=== PATIENT | female | born 1985 | race Caucasian/White ===

== ENCOUNTER → 2019-09-08 | Outpatient (CLI) | payer OTHER, SELFPAY ==
[2019-09-09 15:58] LABS: Chlamydia Trachomatis by PCR Negative (Negative); Neisserai gonorrhoeae by PCR Negative (Negative); Probe Check PASS; Sample Adequacy Control PASS; Specimen Processing Control PASS
[2019-09-12 10:47] LABS: HPV Reflexed? NOT INDICATED
== END | disposition home or self-care (01) ==
LOC: LABSPEC 09-09 08:59
PROVIDERS: Visit Provider Obstetrics & Gynecology
DX: Z12.4 Encounter for screening for malignant neoplasm of cervix (principal); Z11.3 Encounter for screening for infections with a predominantly sexual mode of transmission
CPT/HCPCS: 87491; 87591; 88175; G0145

== ENCOUNTER → 2020-02-22 | Outpatient (CLI) | payer OTHER, SELFPAY ==
[2014-02-05 11:40] VITALS: BMI 29.7
== END | disposition home or self-care (01) ==
LOC: LABSPEC 16:47
PROVIDERS: Visit Provider Obstetrics & Gynecology
DX: Z36.85 Encounter for antenatal screening for Streptococcus B (principal)
CPT/HCPCS: 87081

== ENCOUNTER → 2020-02-24 17:22 | Outpatient (CLI) | payer OTHER, SELFPAY ==
[2020-02-24 16:58] VITALS: BMI 31.3
== END ==
PROVIDERS: PCP Family Medicine; Referring Provider Obstetrics & Gynecology; Visit Provider Obstetrics & Gynecology
DX: U07.1 COVID-19 (principal)
CPT/HCPCS: 87635; C9803; U0003

== ENCOUNTER 2020-02-24 19:15 | Inpatient (IN) | payer OTHER, SELFPAY ==
[2014-02-05 11:40] VITALS: BMI 29.7
[2020-02-24] VITALS (11 sets, daily range): BP systolic 107–129; BP diastolic 57–75; PULSE 65–92; RESP 12–20; TEMP 36.1–37.1; O2SAT 95–97; BMI 31.3
[2020-02-24] MEDS: Lactated Ringers 1,000 ML 999 ML IV (19:10)
[2020-02-24 19:28] LABS: Absolute Lymphocyte Count 1.89 X10^3/uL (0.83-4.51); Absolute Neutrophil Count 11.9 X10^3/uL (2.0-7.7); Basophil# 0.06 X10^3/uL; Basophil% 0.4 % (0-1); Hemoglobin 12.5 g/dL (12.0-15.0); Lymphocyte # 1.89 X10^3/ul (4.0); Lymphocyte % 12.6 % (19-41); Mean Corp Hgb Conc 32.9 g/dL (32-36); Mean Corpuscular Hgb 29.1 pg (27.0-32.0); Mean Corpuscular Volume 88.4 fL (81-99); Mean Platelet Vol. 9.6 fl (6.2-12.0); Monocyte# 0.74 X10^3/uL; Monocyte% 4.9 % (0-10); NRBC Flagged by Analyzer 0 % (0-5); Neutrophil # 11.88 X10^3/uL (2.7-7.7); Neutrophil % 79.3 % (47-70); Platelet Count 272 K/mm3 (150-450); RBC Distribution Width CV 13.9 % (11.6-14.6); RBC Distribution Width SD 44.3 fl (35.1-43.9)
--- NOTE | 2020-02-24 19:49 | PCM.HP.BLA ---
History and Physical Date of Admission: 02/24/20 ACOG ANTEPARTUM RECORD - HISTORY AND PHYSICAL (02/24/2020) Name: CHELY NORMAN History of This : This is a 34-year-old who presented to labor and delivery this evening with decreased movement. care has been remarkable for a history of x2 with one of them being a classical . was planned for next week and steroids have been given the last 2 days in preparation for the surgery. Upon presentation to labor and delivery she was noted to be having some irregular contractions but heart tones are nonreassuring. The patient is not having any bleeding or pain although she is having some uncomfortable contractions. Patient also desires permanent sterilization at the time of her section. OB Physician: DARRIAN [place]'s Physician: Sha Ramesh [facility] ...................................................................... : 1985 Age: 34 Address: [address] [place] [address] Phone: H) [phone] Insurance Carrier: [facility] [id number] Emergency Contact: DEBBIE NORMAN/SPOUSE [phone] ...................................................................... Final BUSHRA: 03/20/20 By Ultrasound: 12 weeks 2 days PARITY: (G-Total Pregnancies P-Fullterm,Premature,Induced AB,Spont AB, Ectopics, Multiple,Living) BUSHRA CONFIRMATION: By LMP: 06/14/19 Final BUSHRA: 03/20/20 OB PROBLEM LIST: ALLERGIES SULFA AND ROBITUSSIN Probable [facility] del re to 37 w RCS in case NICU care needed. History PPD. May want fluoxetine PP. Prior x 2; Plan repeat at 37 weeks gestation -- wants tubal--prior classical tear with prior delivery ALLERGIES: NKDA Robitussin Hives Robitussin Hives and/or rash Sulfa Hives/throat swelling Sulfa (Sulfonamide Antibiotics) Hives and/or rash MEDICATIONS: [place] Rive Gummies 1 PO BID fluoxetine 20 mg capsule One pill by mouth once a day Supplement (s) [No Strength] Varigone Unisom (doxylamine) 25 mg tablet at hs Vitamin B-6 50 mg capsule daily SOCIAL HISTORY: Smoking - Never Alcohol Use - not while pg, occ sips wine. Diet - balanced Diet, caffeine < 2 drinks per day and water- less with NVP. Usually 2 liters q day Lifestyle - Exercise - Less w NVP. Active w home, garden. Some mowing. Likes to walk. Employer - homemaker Job Description - Illicit Drug Use - denies use of street drugs Sexual Activity - Place of - [place] Spouse-Sig Other Name - Debbie Norman Spouse-Sig Other Occupation - [employer] Spouse-Sig Other Phone No - [phone] Children Name(s) - Navneet Stephenson Joel and Jaun(14) PRIOR DELIVERY HISTORY DEL DATE GEST LAB WT LB WT OZ TYPE ANES LABOR TX 05 Oct 18 40 15 5 14 Vag None No Dec 20 32 12 3 11 C-Sec Epidural No Dec 20 32 12 3 7 C-Sec Epidural No Jan 24 37 0 6 4 C-Sec Spinal No ANTEPARTUM FLOW CHART VISIT GE RTC FU F F IL U U DATE WK MD WKS HT PN HR M SS BP ED WT IL GL D EF ST __ ____ ___ __ __ ___ __ __ __ ___ __ __ __ ___ __ 12 Feb JMW + 112/72 sl 186 tr - Feb JMW 3 36 V + + 98/82 sl 185 - - cl 50 hi Jan JMW 2 34 + + 116/70 sl 186 - - Jan JM 2 32 V + + 125/81 sl 186 tr - Feb 09 JMW 2 31 + + 123/72 sl 186 - - Dec 05 JMW 3 25 + + 124/70 sl 182 - - 30 Nov 01 JMW 4 24 + US 130/79 tr 179 tr - Sep 26 JMW 4 16 + ? 124/78 sl 173 tr - ANTEPARTUM NOTE(S): Feb 23 2020: Second dose Celestone Given, Reviewed Covid Screening Form Feb 22 2020: Celestone today/tomorrow; GBS done Feb 09 2020: Ctxs-mild, Good FM Jan 26 2020: doing well, scheduled 03/02/2020 Jan 12 2020: Doing well, 1hrGTT/CBC today Dec 08 2019: questions about COVID, Glucola inst provided and reviewed Nov 11 2019: U/S OK Oct 06 2019: Needs Panel drawn today,Feeling Well COMPREHENSIVE ANTEPARTUM NOTE(S): Feb 23 2020: Presents here today for second dose of Celestone 15 mg as previous dose was given yesterday 02/22/20 via undersigned in RUOQ IM without problems. Reports noting alittle insomnia last night, but otherwise denies problems or concerns. Already scheduled for next week and reviewed covid screening order with her and copy given for her to call and schedule. Celestone 15 mg injection given today in LUOQ IM via undersigned without problem. No side effects noted after her 15 minute wait post-injection. ERNIE RN Feb 22 2020: Chely is here for a PNV/ Pre op appt. Good FM. Sl edema in feet and fingers. Reports ctx's over New Years and ctx's last , would like a cervix check today. Consent signed and reviewed for / tubal. Ensure sent with pt. GBS today, consent signed. MK Jan 26 2020: 32wk, hx of classical c/s for R C/S BTL. Scheduled at 37wk in [facility] 03/02/20. JM Jan 12 2020: Labs drawn from left ac x 1 attempt with 23g butterfly patient tolerated well, site without compromise. jlb Nov 11 2019: Chely is here today with spouse for her PNV. She is doing good. Good FM. She has a trace of edema in her ankles. States that the nausea and vomiting has subsided since she is on Unisom and Vit B-6. She wants to know how long she should stay on Unisom and Vit B-6. Medications and allergies up to date. No other questions or concerns expressed today. LJW Oct 06 2019: AFP form and EPDS form filled out today. 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 Her , Debbie works at [employer]. They are pleased about the . Chely's first son, 13 y, was an uncomplicated vag del at [facility]. . Her second , twin boys, now 11 y born by PCS at [facility] uterine tearing and blood transfusions. Babies had 2 1/2 and 3 weeks NICU time. Chely pumped for them. She had PPD and was on fluoxetine. Her 5 yo son, RCS at 37 w at [facility] did well and nursed x 1 year. She was on fluoxetine for a few months and really enjoyed him. Cheyl is interested in starting the antidepressant early on with this baby. She has allergies to Sulfa and Robitussin. Her diet is balanced with occ iced tea and at least 2 liters of water daily. She is very active with her home, family and garden. She'll start mowing when her boys return to school. Walking for exercise enc 20 min + day as she can. Chely is a lifetime non smoker, drinks wine occ but not in pg and denies street drug use. 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 She is taking an Pentecostalism supplement to help with varicose veins. Warning signs in preg reviewed as well as wearing seatbelt low and ALWAYS despite position in the vehicle, OTC meds ok to take when pg, lifting restriction of 20-25# , the importance of protein in her diet and reaching the office with any concerns with understanding voiced. They have only an outside cat but she is aware of litter box issues. US done at prev visit. Labs unable to be drawn at last visit due to dehydration and will have a next visit. She has a copy of What to Expect and other office informational papers. Enc to call if any questions. Visit took 40 minutes. Rogerio GARRIDO. NEW Sep 08 2019: ok Sep 07 2020: Chely presents here today for Missed Menses appointment. 34 y.o. G 4 P 4 (set of twins) non-smoker with regular menses and LMP of 06-14-19 lasting her average of 5-6 days. UPT is positive today in our Office. Presents at 12 weeks 2 days with an approximate BUSHRA of 03-20-20. Currently taking Belle Rive Gummie Vitamins as she continues with daily nausea, declines offer for an Rx for nausea at this time. History of normal pap screening in 2013. Medication and Allergy lists up-dated. Educational Materials given. Plans repeat at [facility] and mentions that she would also like to have a Tubal at same time. ERNIE REVIEW OF SYSTEMS: GENERAL - Denies fever, or chills SKIN - Denies rash, new skin lesions, or change in moles EYES - Denies blurred vision, or change in visual acuity EARS - Denies ear pain, or difficulty hearing NOSE - Denies nasal congestion, discharge, or bleeding MOUTH - Denies sore throat, or difficulty swallowing NECK - Denies pain or swelling RESPIRATORY - Denies shortness of breath, cough, wheezing CARDIOVASCULAR - Denies palpitations, chest pain, orthopnea, PND, peripheral edema, syncope or claudication GASTROINTESTINAL - Denies nausea, vomiting, diarrhea, constipation, Denies abdominal pain, melena and or bright red blood GENITOURINARY - Denies dysuria, frequency of urination, urgency, or hesitancy MUSCULOSKELETAL - Denies joint or muscle pain, or back pain NEUROLOGICAL - Denies localized numbness, weakness, or tingling PSYCHIATRIC - Denies depression, anxiety, substance abuse or suicide attempts ENDOCRINE - Denies heat or cold intolerance, weight loss or gain, increasing thirst HEMATO-IMMUNOLOGIC - Denies easy bruising, bleeding, oral ulcerations or recurrent infections GENETICS SCREENING: Age 35+ years: Yes Thalassemia: No Neural Tube Defect: No Down Syndrome: No RHODA-SACHS: No Sickle Cell Disease: No Hemophilia: No Musc. Dystrophy: No Cystic Fibrosis: No-declines screening Van Chorea: No Mental Retardation: No Fragile X: No Other genetic: No Other defects: No SABs/still births: No Drugs since LMP: No INFECTION HISTORY: High risk AIDS: No High risk Hepatitis: No Exposed to TB: No Exposed to Herpes: No Rash/viral illness since LMP: No History of STD: No MENSTRUAL HISTORY: *Menses Amount/Duration: 5 daysMenses Regularity: Regular* PAST SUMMARY: PARITY: 1. Total Pregnancies............ 4 2. Full Term Pregnancies........ 2 3. Premature.................... 2 4. Abortions - Induced.......... 0 5. Abortions - Spontaneous...... 0 6. Ectopics..................... 0 7. Multiple Births.............. 1 8. Living Children.............. 4 PAST #1: Date of :.................. 10/16/[birth year] Gestation Weeks:................ 40 Length of labor(hours):......... 15 Sex:............................ M Weight-lbs:............... 5 Weight-oz:................ 14 Type of Delivery:............... Vag Type of Anesthesia:............. None Place of Delivery:.............. [facility] Treatment of Labor?:.... No Comment: PAST #2: Date of :.................. 12/22/08 Gestation Weeks:................ 32 Length of labor(hours):......... 12 Sex:............................ M Weight-lbs:............... 3 Weight-oz:................ 7 Type of Delivery:............... C-Sect Type of Anesthesia:............. Epidural Place of Delivery:.............. [facility] Treatment of Labor?:.... No Comment: BABY A PAST #3: Date of :.................. 12/22/08 Gestation Weeks:................ 32 Length of labor(hours):......... 12 Sex:............................ M Weight-lbs:............... 3 Weight-oz:................ 11 Type of Delivery:............... C-Sect Type of Anesthesia:............. Epidural Place of Delivery:.............. [facility] Treatment of Labor?:.... No Comment: BABY B PAST #4: Date of :.................. 02/05/14 Gestation Weeks:................ 37 Length of labor(hours):......... 0 Sex:............................ M Weight-lbs:............... 6 Weight-oz:................ 4 Type of Delivery:............... C-Sect Type of Anesthesia:............. Spinal Place of Delivery:.............. [facility] Treatment of Labor?:.... No Comment: NO PHYSICAL EXAMINATION General Appearence: 34 yo female in no acute distress Vital Signs: AF, VSS Heart: RRR without rubs or gallops Lungs: CTA x 2 Breasts: deferred Abdomen: gravid Pelvis: Cervix: Not examined Presentation: cephalic Station: Not examined Fetus: Size: AGA Movement: present Heart: present Labs for : CHELY NORMAN since 06/24/2019 ORDER DATEIN DESCRIPTION VALUE UNITS RANGE A+ COMMENT CULTURE, GROUP B STREPTOCOCCUS 02/22/20 NOTE Original Ordering Provider: Landy Gates MAKSIM Culture Group B Beta Streptococcus is not isolated. Reviewed by LANDY CBC + DIFF 01/12/20 NOTE Original Ordering Provider: LANDY GATES CBC + DIFF CBC-COMPLETE BLOOD COUNT WBC 10.9 x 10EE3/UL 4.5 - 10.8 H RBC 4.19 x 10EE6/UL 4.10 - 5.30 HEMOGLOBIN 12.3 g/dl 12.0 - 16.0 HEMATOCRIT 35.5 % 34.0 - 46.0 MCV 85 fl 80 - 99 MCH 29 pg 27 - 33 MCHC 35 X10 3 32 - 36 RDW/CV 14.7 % 12.0 - 15.6 PLATELET 255 x10EE3/UL 150 - 450 MPV 7.9 fl 6.6 - 10.5 AUTOMATED DIFFERENTIAL NEUT % 77.5 % 46.0 - 76.0 H LYMPH % 16.9 % 20.0 - 45.0 L MONOS % 4.0 % 0.0 - 10.0 EO % 1.0 % 0.0 - 7.0 BASO % 0.6 % 0.0 - 2.0 LYMPH # 1.80 x10EE3/UL 0.80 - 2.80 NEUT # 8.40 x10EE3/UL 1.50 - 7.10 H MONO # 0.40 x10EE3/UL 0.20 - 1.00 EO # 0.10 x10EE3/UL 0.00 - 0.50 BASO # 0.10 x10EE3/UL 0.00 - 0.10 MANUAL DIFF SEE BELOW BANDS 7 % 0 - 5 H SEGS 56 % 50 - 70 LYMPH 27 % 20 - 40 MONOS 6 % 0 - 8 EO 4.0 % 0.0 - 4.0 CELL COUNT 100 MORPHOLOGY REVIEWED {CD] Reviewed by LANDY GLUCOSE CHALLENGE 50GM 1 HOUR 01/12/20 NOTE Original Ordering Provider: LANDY GATES GLUCOSE CHALLENGE 50GM 1 HOUR GLUCOSE CHALLENGE 50 GMS 1 HOUR GLUCOSE 1HR 133 mg/dl 70 - 140 Reviewed by LANDY HEPATITIS C AB IA W/CONFIRM [CCL] 10/06/19 NOTE Original Ordering Provider: LANDY GATES HEPATITIS C [place] [address] Med Rapp III, M.D. [id number] Reviewed by LANDY SEGAL 3 [CCL] 10/06/19 NOTE Original Ordering Provider: LANDY GATES RPR Non Reactive NR HEPATITIS B SURF. AG Negative NEGAT RUBELLA IGG AB, QUAL Positive NEGAT A Sample is considered positive for IgG antibodies to rubella virus. A positive result indicates previous exposure to Rubella virus or vaccination. RUBELLA IGG AB 2.37 Indexlue Index values are interpreted as follows: Negative specimens <0.90 Equivocol specimens 0.90 to 0.99 Positive specimens >0.99 The magnitude of the measured result is not indicative of the amount of antibody present. [facility] [address] [place] [address] Med Rapp III, M.D. [id number] Reviewed by LANDY BAEZ TYPE 10/06/19 NOTE Original Ordering Provider: LANDY BAEZ TYPE TYPE, Rh, AND SCREEN ABO A RH POS ANTIBODY SCR negative Reviewed by LANDY URINALYSIS 10/06/19 NOTE Original Ordering Provider: LANDY GATES URINALYSIS URINALYSIS SPECIMEN TYPE Clean catch COLOR p.yel NORMAL: YELLOW CLARITY clear NORMAL: CLEAR PH 6 NORMAL: 5.0-8.0 PROTEIN NEG NORMAL: NEGATIVE GLUCOSE NORM NORMAL: NORMAL KETONE NEG NORMAL: NEGATIVE BILIRUBIN NEG NORMAL: NEGATIVE BLOOD NEG NORMAL: NEGATIVE UROBILINOG NORM NORMAL: NORMAL SP GRAVITY 1.010 NORMAL: 1.010-1.030 NITRITE NEG NORMAL: NEGATIVE LEUKOCYTES 25 NORMAL: NEGATIVE A MICROSCOPIC SEE BELOW MICROSCOPIC WBC 1-5 0-5/hpf RBC NONE 0-3/hpf CASTS NONE CRYSTALS NONE AMORPHOUS NONE BACTERIA 1+ EPI CELLS MODERATE MUCOUS NONE YEAST RARE Reviewed by LANDY TSH 10/06/19 NOTE Original Ordering Provider: LANDY GATES TSH 1.63 uIU/ml 0.34 - 5.60 Reviewed by LANDY CBC + DIFF 10/06/19 NOTE Original Ordering Provider: LANDY GATES CBC + DIFF CBC-COMPLETE BLOOD COUNT WBC 11.5 x 10EE3/UL 4.5 - 10.8 H RBC 4.18 x 10EE6/UL 4.10 - 5.30 HEMOGLOBIN 12.3 g/dl 12.0 - 16.0 HEMATOCRIT 35.6 % 34.0 - 46.0 MCV 85 fl 80 - 99 MCH 30 pg 27 - 33 MCHC 35 X10 3 32 - 36 RDW/CV 14.6 % 12.0 - 15.6 PLATELET 271 x10EE3/UL 150 - 450 MPV 7.9 fl 6.6 - 10.5 AUTOMATED DIFFERENTIAL NEUT % 75.6 % 46.0 - 76.0 LYMPH % 17.8 % 20.0 - 45.0 L MONOS % 4.6 % 0.0 - 10.0 EO % 1.7 % 0.0 - 7.0 BASO % 0.3 % 0.0 - 2.0 LYMPH # 2.10 x10EE3/UL 0.80 - 2.80 NEUT # 8.70 x10EE3/UL 1.50 - 7.10 H MONO # 0.50 x10EE3/UL 0.20 - 1.00 EO # 0.20 x10EE3/UL 0.00 - 0.50 BASO # 0.00 x10EE3/UL 0.00 - 0.10 MANUAL DIFF N/A MORPHOLOGY N/A Reviewed by LANDY Initial OB Labs 10/06/19 HIV Test negative (Scanned) Negative Reviewed by LANDY PAP IG W/REFLEX HR HPV APTIMA 09/08/19 NOTE Original Ordering Provider: Landy Gates DIAGN . NEGATIVE FOR INTRAEPITHELIAL LESION OR MALIGNANCY. ADEQ . Satisfactory for evaluation. Endocervical and/or squamous metaplastic cells (endocervical component) are present. PERFORM . Marianela Sierra Marketing Liaison (ASCP) TEST METHOD . This liquid based ThinPrep(R) pap test was screened with the use of an image guided system. COMM . . PAPSMR . The Pap smear is a screening test designed to aid in the detection of premalignant and malignant conditions of the uterine cervix. It is not a diagnostic procedure and should not be used as the sole means of detecting cervical cancer. Both false-positive and false-negative reports do occur. HPV RFLX . The HPV DNA reflex criteria were not met with this specimen result therefore, no HPV testing was performed. Performed at: [address] [id number] Snack Steward: Eusebia Wayne MD, Phone: [phone] Reviewed by LANDY CT/[facility] BY PCR 09/08/19 NOTE Original Ordering Provider: Landy Gates [facility] PCR Negative Negative NG BY PCR Negative Negative Reviewed by LANDY Impression /Plan: 36+ week intrauterine in early labor with nonreassuring heart tones with a prior classical section. Plan repeat low transverse cervical section and bilateral salpingectomy. Preparations in progress for delivery.
--- NOTE | 2020-02-24 20:06 | PCM.OPRPT ---
Delivery Classification: ADÁN Final BUSHRA: 03/20/20 Final BUSHRA Source: US <20 weeks Gestational age: 36 Weeks and 3 Days b and b gang worker: Mackenzie Villegas Type of Anesthesia:: Spinal - With Duramorph Date of Procedure: 02/24/20 Pre-Operative Diagnosis: Nonreassuring Heart Tones, Prior Classical Section, Desires Permanent Sterilization Post-Operative Diagnosis: Nonreassuring Heart Tones, Prior Classical Section, Desires Permanent Sterilization Description of Procedure: Surgeon: Sunil Camacho MD, FACOG Anesthesia: Negra Oliveros MD Procedure: Repeat Low Transverse Cervical Caesarean Section And Bilateral Salpingectomy Findings: Viable [ ] infant with Apgars of [ ] in [ ] presentation with clear amniotic fluid and normal three-vessel placenta. Indication: This is a 34-year-old who presents in early labor with nonreassuring heart tones for her third at 36+ weeks gestation. care has been eventful for a prior classical section and repeat section and tubal was planned next week. She received steroids the last 2 days in preparation for that surgery. The patient has been counseled regarding the risk and indications of this procedure including the possibility of bleeding infection and injury to surrounding structures such as bowel bladder. She also understands the permanent nature of salpingectomy, the failure rate of 1 to 2%, and the availability of other nonpermanent control options. All questions were answered. Procedure: Patient was taken to the operating room where after spinal anesthesia was placed, the patient was prepped and draped in usual sterile fashion and a Vance catheter was placed. The abdomen was entered through the patient's prior Pfannenstiel incision and peritoneum was entered bluntly. After developing a bladder flap on the lower uterine segment a low transverse incision was made on the uterus and head was easily delivered onto the operative field the nose mouth and oropharynx were bulb suctioned. Subsequently a viable [ ] infant was born with Apgars of [ ]. The infant was noted to cry move all extremities vigorously on the operative field. The umbilical cord was doubly clamped and ligated and handed to the nursery personnel who were present for the delivery. Placenta was delivered and noted to be 3 vessels and normal. Uterus was exteriorized and remaining placental tissue was removed. The uterus was then closed in 2 layers first with running locked 0 Vicryl suture followed by a second imbricating layer with 0 Vicryl suture. 0 Vicryl suture was then used in a horizontal mattress interrupted fashion to affect final hemostasis of the uterine incision line. Normal fallopian tubes and ovaries were visualized and LigaSure was used to ligate each fallopian tube to the uterus. The uterus was returned to the pelvis. Hemostasis was noted and rectus abdominis muscles were reapproximated in the midline with interrupted Number 0 Vicryl suture in a horizontal mattress fashion. Fascia was closed with running Number 1 PDS Strata fix suture. Subcutaneous tissue was irrigated with copious amounts of saline solution and then closed with running 3-0 Vicryl suture. Skin was closed with 4-0 monocryl suture in a running subcuticular fashion. Steri strips and a Mepilex dressing were placed across the incision. The patient tolerated the procedure well and was taken to the recovery room in satisfactory condition. Sponge, needle, and instrument counts were all reportedly correct. EBL was less than 500 cc. Ancef 2 gms IV was given prior to the procedure. Spicemen to Pathology: None Complications: None Amniotic Fluid Description: Clear Placenta Disposition: [facility] Drain: Vance to straight drain Cord Entanglement: None Cord Vessel Description: 3 Vessels Esitmated Blood Loss (ml): 500 cc Antibiotic Given: Ancef 2 grams IV x1 Pt instructed on risks of surgery: Bleeding, Infection, Permanency, Failure Rate of 1 to 2%, Injury to surrounding structure(s) including bowel and bladder, Availability of other non-permanent control options Complications: None - Admit VTE Documentation VTE Present on Admission: Yes VTE Mechan Device Prophylaxis: SCD's VTE Pharm Prophylaxis ordered?: Yes
[2020-02-24] MEDS: Sodium Citrate/Citric Acid 30 ML UDC PO (20:08)
[2020-02-24] MEDS: Lactated Ringers 1,000 ML 150 ML IV (20:11)
--- NOTE | 2020-02-24 20:12 | DCINST_ITS ---
<Sunil Camacho - Last Filed: 02/24/20 20:12> Discharge Diet: No Restrictions Discharge Activity: May not drive while taking narcotic pain medications., May Shower, May Take a Tub Bath May resume sexual activity in: 4-6 weeks Lifting Restrictions: 20 pounds Additional Activity Instructions:: Nothing in the vagina for 4-6 weeks. You may return to work/school in 6 weeks. Call your doctor if your incision/area has: Continuous Slow Oozing, Sudden Increased Bleeding, Increased Pain/ Swelling, Increased Redness, Foul Smelling Discharge Call your doctor if you observe: Fever of 101 or Higher, Inability to urinate, Inability to have a bowel movement, Using more than one pad per hour Additional Instructions: If you experience any of the following, contact your healthcare provider. * Bleeding that soaks a pad every hour for 2 hours * Fever 100.4 or higher * Unrelieved incision or abdominal pain * Swelling, redness, discharge or bleeding from your incision or episiotomy site * Your incision begins to separate * Problems urinating (including inability to urinate or burning while urinating). * Visual changes * Severe headache * Flu-like symptoms * Pain or redness in one of both of your breasts * Pain, warmth, tenderness or swelling in your legs, especially the calf area * Frequent nausea and vomiting * Symptoms of depression or anxiety If you experience any of the following, call 911 or go to the nearest Emergency Room. * Chest pain * Problems breathing * Seizure activity * Partial or complete paralysis of a body part, slurred speech, weakness or drooping of the face, or a sudden inability to walk or hold your balance Allergies/Adverse Reactions: Allergies guaifenesin [From Robitussin] Allergy (Verified 02/24/20 19:15) Hives Sulfa (Sulfonamide Antibiotics) Allergy (Verified 02/24/20 19:15) Anaphylaxis sulfamethoxazole [From Bactrim] Allergy (Verified 02/24/20 19:15) Anaphylaxis trimethoprim [From Bactrim] Allergy (Verified 02/24/20 19:15) Anaphylaxis Medications to take at Discharge Fluoxetine [Prozac] 20 mg PO DAILY 02/03/14 Vits [Prenatabs FA ] 1 tablet PO DAILY 02/03/14 Selenium 100 mcg PO BID 02/03/14 Docusate Sodium [Colace] 100 mg PO BID PRN PRN #60 cap 02/24/20 Oxycodone [Oxyir] 5 mg PO Q6H PRN PRN 7 Days #20 tab 02/24/20 The following prescriptions were given: Docusate Sodium [Colace] 100 mg PO BID PRN PRN #60 cap PRN Reason: Constipation Transmission Status: Received by [facility] Oxycodone [Oxyir] 5 mg PO Q6H PRN PRN 7 Days #20 tab PRN Reason: Pain Score 6-10 Transmission Status: Received by [facility] Follow-Up: Call to make an appointment with your doctor for an incision check in 1-2 weeks. You will also need a 6 week post- follow up appointment. Test results from this visit will be discussed in further detail at your follow- up appointment, if applicable. Please Follow Up With: Sunil Camacho MD - [phone] When: Call to make an appointment for an incision check in 2 weeks. Primary Care Physician: Alexander Shay MD [Primary Care Provider] - <Shireen Adam - Last Filed: 02/26/20 08:37> Additional Instructions: If you experience any of the following, contact your healthcare provider. * Bleeding that soaks a pad every hour for 2 hours * Fever 100.4 or higher * Unrelieved incision or abdominal pain * Swelling, redness, discharge or bleeding from your incision or episiotomy site * Your incision begins to separate * Problems urinating (including inability to urinate or burning while urinating). * Visual changes * Severe headache * Flu-like symptoms * Pain or redness in one of both of your breasts * Pain, warmth, tenderness or swelling in your legs, especially the calf area * Frequent nausea and vomiting * Symptoms of depression or anxiety If you experience any of the following, call 911 or go to the nearest Emergency Room. * Chest pain * Problems breathing * Seizure activity * Partial or complete paralysis of a body part, slurred speech, weakness or drooping of the face, or a sudden inability to walk or hold your balance Follow-Up: Call to make an appointment with your doctor for an incision check in 1-2 weeks. You will also need a 6 week post- follow up appointment. Test results from this visit will be discussed in further detail at your follow- up appointment, if applicable.
[2020-02-24] MEDS: Cefazolin 2 GM in 0.9% Normal Saline 100 ML IV (20:22)
--- NOTE | 2020-02-24 21:38 | NURSING ---
dr ayers states pt received total amount of 1500 cc fluid during surgery.
[2020-02-24] MEDS: Oxytocin 30 units/NS 500 ml 30 UNITS/500 ML IV.SOLN 167 UNITS IV (21:55)
[2020-02-25] VITALS (9 sets, daily range): BP systolic 98–118; BP diastolic 51–72; PULSE 63–77; RESP 14–18; TEMP 36.3–37.3; O2SAT 94–100
[2020-02-25] MEDS: Acetaminophen 500 MG Tablet 1000 MG PO ×4 (00:09→17:48)
[2020-02-25] MEDS: Lactated Ringers 1,000 ML 100 ML IV (00:49)
--- NOTE | 2020-02-25 00:53 | FALS_PTH ---
PATIENT: MITRA GRIER LOC: [facility] U#:[id number] AGE/SX: 34/F ROOM: [facility] RE02/24/[address]: Dr. Sunil Camacho MD : 1985 BED: 1 DIS: 02/26/2020 SPEC #: [id number] RECD: 02/25/20 01:04 STATUS: SHANDRA JUVE #: [id number] KISHA: 02/25/20 00:[address]: Sunil Camacho DEPT: SURGICAL PATHOLOGY RECD BY: Destini Khan ENTERED: 02/25/20 06:47 SP TYPE: FALL TUBES OTHR DR: Dr. Alexander Shay MD Tissues: Fallopian tube Procedures: Surgery Specimen Level II HEADER OPERATION: Tubal ligation PRE-OP DIAGNOSIS: Sterilization TISSUE SUBMITTED: Fallopian tubes MICROSCOPIC DIAGNOSIS Right and left fallopian tubes, bilateral salpingectomies: Two complete segments of fallopian tubes with no pathologic change. AM:tammy 02/26/2020 MICROSCOPIC DESCRIPTION Slides are reviewed. GROSS DESCRIPTION Received in fixative is one container labeled with the patient's name and designated bilateral fallopian tubes. The specimen consists of bilateral fallopian tubes including fimbrial ends measuring 7 cm in length and 0.7 cm in diameter and 7.5 cm in length and 0.6 cm in diameter. The fallopian tubes are not identified as right or left. Sections reveal unremarkable cut surfaces. Bar Roller sections are submitted in two cassettes with each cassette containing one fallopian tube. / DEE:tammy 02/25/20 TC:4 CPT: 13001 x2
[2020-02-25 01:05] LABS: Pathology Specimen OB SEE PATHOLOGY REPORT
[2020-02-25] MEDS: Ketorolac 30 MG/ML Syringe IV ×4 (03:47→21:27)
[2020-02-25] MEDS: 0.9% Saline Lock 10 ML Syringe IV ×4 (03:47→21:27)
[2020-02-25] MEDS: Cefazolin 1 GM/50 ML BAG IV ×2 (03:48→11:44)
[2020-02-25 04:17] LABS: Hematocrit 32.7 % (37-47); Hemoglobin 10.9 g/dL (12.0-15.0); Mean Corp Hgb Conc 33.3 g/dL (32-36); Mean Corpuscular Hgb 29.4 pg (27.0-32.0); Mean Corpuscular Volume 88.1 fL (81-99); Mean Platelet Vol. 9.6 fl (6.2-12.0); Platelet Count 238 K/mm3 (150-450); RBC Distribution Width CV 13.9 % (11.6-14.6); RBC Distribution Width SD 44.8 fl (35.1-43.9); Red Blood Count 3.71 M/mm3 (4.2-5.4); White Blood Count 16.4 K/mm3 (4.4-11.0)
--- NOTE | 2020-02-25 08:43 | PCM.PN.OB ---
Subjective: No overnight complaints. Pain well controlled. - Physical Exam Vitals/I&O's: Vital Signs Temp Pulse Resp BP Pulse Ox 98.4 F 69 18 106/72 96 02/25/20 07:47 02/25/20 07:47 02/25/20 07:47 02/25/20 07:47 02/25/20 07:47 Oxygen Delivery Method Room Air Weight: 185 lb 3.013 oz Body Mass Index (BMI) 31.3 Intake and Output for Last 24 Hours 02/23/20 02/24/20 02/25/20 23:59 23:59 23:59 Intake Total 1917.5 / 1917.5 1037.08 / 1037.08 Output Total 500 / 500 400 / 400 Balance 1417.5 / 1417.5 637.08 / 637.08 General: Alert, Oriented x3, Cooperative, No apparent distress, Well developed, Well nourished HEENT: Atraumatic, PERRLA, Normocephalic Oral: Moist Mucosa Neck: Supple Abdomen: Soft, Non Tender, - - Bandage clean dry and intact Extremities: No clubbing, No cyanosis, No edema Neurological: Neuro grossly intact Psych/Mental Status: Normal Affect, Appropriate, Alert and oriented to time, place, person, mood and affect Microbiology Past 72 Hours 02/24/20 19:35 Mucosa - Nose SARS-CoV-2 Antigen (Rapid) - Final Laboratory Results 02/24/20 19:10: Blood Type A POSITIVE, Antibody Screen NEGATIVE 02/24/20 19:10: WBC 15.0 H, RBC 4.30, Hgb 12.5, Hct 38.0, MCV 88.4, MCH 29.1, MCHC 32.9, RDW Std Deviation 44.3 H, RDW Coeff of Aurea 13.9, Plt Count 272, MPV 9.6, Immature Gran % (Auto) 2.800 H, Neut % (Auto) 79.3 H, Lymph % (Auto) 12.6 L, Craven % (Auto) 4.9, Eos % (Auto) 0.0, Baso % (Auto) 0.4, Absolute Neuts (auto) 11.9 H, Absolute Lymphs (auto) 1.89, Nucleated RBC % 0 02/25/20 04:00: WBC 16.4 H, RBC 3.71 L, Hgb 10.9 L, Hct 32.7 L, MCV 88.1, MCH 29.4, MCHC 33.3, RDW Std Deviation 44.8 H, RDW Coeff of Aurea 13.9, Plt Count 238, MPV 9.6 Current Medications Acetaminophen (Acetaminophen 500 Mg Tablet) 1,000 mg PO Q6 [facility] Last Admin: 02/25/20 06:00 Dose: 1,000 mg Documented by: Bisacodyl (Bisacodyl 10 Mg Suppository) 10 mg RECTAL UD PRN PRN Reason: If no BM Diphenhydramine HCl (Diphenhydramine 25 Mg Capsule) 25 mg PO Q6H PRN PRN PRN Reason: ITCHING Stop: 02/25/20 23:46 Enoxaparin Sodium (Enoxaparin 40 Mg/0.4 Ml Syringe) 40 mg SC DAILY [facility] Fluoxetine HCl (Fluoxetine 20 Mg Capsule) 20 mg PO DAILY [facility] Hydrocortisone (Hydrocortisone 2.5% Crm) 1 applic TOPICAL TID PRN PRN; Protocol PRN Reason: Discomfort Lactated Ringer's () 1,000 mls @ 100 mls/hr IV .Q10H [facility] Last Admin: 02/25/20 00:49 Dose: 100 mls/hr Documented by: Cefazolin Sodium () 1 gm in 50 mls @ 150 mls/hr IV Q8H [facility] Stop: 02/25/20 12:19 Last Infusion: 02/25/20 04:08 Dose: Infused Documented by: Ibuprofen (Ibuprofen 600 Mg Tablet) 600 mg PO Q6H [facility] Ketorolac Tromethamine (Ketorolac 30 Mg/Ml Syringe) 30 mg IV Q6H [facility] Stop: 02/25/20 21:01 Last Admin: 02/25/20 03:47 Dose: 30 mg Documented by: Methylergonovine Maleate (Methylergonovine 0.2 Mg/Ml Ampul) 0.2 mg IM X1 PRN PRN Reason: Uterine Atony Nalbuphine HCl (Nalbuphine 10 Mg/Ml Ampul) 5 mg IV Q3H PRN PRN PRN Reason: ITCHING Stop: 02/25/20 23:46 Naloxone HCl (Naloxone 0.4 Mg/Ml Syringe) 0.02 mg IV Q1M PRN PRN Reason: RR <10 and pt unresponsive Ondansetron HCl (Ondansetron 4 Mg/2 Ml Vial) 4 mg IV Q4H PRN PRN PRN Reason: Nausea Oxycodone HCl (Oxycodone 5 Mg Tablet) 5 - 10 mg PO Q4H PRN PRN PRN Reason: Pain Score 4-10 Prochlorperazine Edisylate (Prochlorperazine 10 Mg/2 Ml Vial) 10 mg IV Q6H PRN PRN PRN Reason: NAUSEA Senna/Docusate Sodium (Senna/Docusate Sodium 1 Tablet) 0 tablet PO DAILY [facility] Simethicone (Simethicone 80 Mg Tablet) 80 mg PO PCHS PRN PRN Reason: Indigestion/stomach pain Sodium Chloride (0.9% Saline Lock 10 Ml Syringe) 5 - 15 ml IV UD PRN PRN Reason: SALINE FLUSH Last Admin: 02/25/20 03:47 Dose: 10 ml Documented by: Medical Necessity - Tobacco Use Smoking Status: Never smoker Assessment/Plan Postoperative day 1 status post repeat at 36 weeks for history of classical nonreassuring heart tones. Bilateral tubal ligation performed at that time. Breast-feeding. We will continue current management. Likely discharge home tomorrow
[2020-02-25] MEDS: Senna/Docusate Sodium 1 Tablet PO (09:04)
[2020-02-25] MEDS: Enoxaparin 40 MG/0.4 ML Syringe SC (09:04)
--- NOTE | 2020-02-25 15:17 | NURSING ---
assisted to BR, voided large amount but did not measure. states feels bladder emptied completely.
[2020-02-25] MEDS: FLUoxetine 20 MG Capsule PO (17:48)
[2020-02-26] MEDS: Acetaminophen 500 MG Tablet 1000 MG PO ×2 (00:21→06:38)
[2020-02-26 01:55] VITALS: BP 111/69; PULSE 80; RESP 16; TEMP 36.1; O2SAT 94
[2020-02-26] MEDS: Ibuprofen 600 MG Tablet PO ×2 (03:21→10:03)
--- NOTE | 2020-02-26 08:37 | PN.OBGYN_ITS ---
Subjective: Patient feeling well. Pain controlled. Lochia minimal. - Physical Exam Vitals/I&O's: Vital Signs Temp Pulse Resp BP Pulse Ox 96.9 F L 80 16 111/69 94 02/26/20 01:55 02/26/20 01:55 02/26/20 01:55 02/26/20 01:55 02/26/20 01:55 Oxygen Delivery Method Room Air Weight: 84 kg Body Mass Index (BMI) 31.3 Intake and Output for Last 24 Hours 02/24/20 02/25/20 02/26/20 23:59 23:59 23:59 Intake Total 1917.5 / 1917.5 1913.75 / 1913.75 Output Total 500 / 500 1100 / 1100 Balance 1417.5 / 1417.5 813.75 / 813.75 General: Alert, Oriented x3, No apparent distress HEENT: Atraumatic, Normocephalic Lungs: Clear to auscultation, Normal air movement Cardiovascular: Regular rate Abdomen: Soft - Mildly tender. dressing dry. Uterus 2 cm below umbilicus Extremities: No clubbing, No edema Neurological: Cranial nerves II-XII grossly intact, Gait narrow based and stable Psych/Mental Status: Normal Affect Microbiology Past 72 Hours 02/24/20 19:35 Mucosa - Nose SARS-CoV-2 Antigen (Rapid) - Final Current Medications Acetaminophen (Acetaminophen 500 Mg Tablet) 1,000 mg PO Q6 [facility] Last Admin: 02/26/20 06:38 Dose: 1,000 mg Documented by: Bisacodyl (Bisacodyl 10 Mg Suppository) 10 mg RECTAL UD PRN PRN Reason: If no BM Enoxaparin Sodium (Enoxaparin 40 Mg/0.4 Ml Syringe) 40 mg SC DAILY [facility] Last Admin: 02/25/20 09:04 Dose: 40 mg Documented by: Fluoxetine HCl (Fluoxetine 20 Mg Capsule) 20 mg PO DAILY@1700 [facility] Last Admin: 02/25/20 17:48 Dose: 20 mg Documented by: Hydrocortisone (Hydrocortisone 2.5% Crm) 1 applic TOPICAL TID PRN PRN; Protocol PRN Reason: Discomfort Ibuprofen (Ibuprofen 600 Mg Tablet) 600 mg PO Q6H [facility] Last Admin: 02/26/20 03:21 Dose: 600 mg Documented by: Methylergonovine Maleate (Methylergonovine 0.2 Mg/Ml Ampul) 0.2 mg IM X1 PRN PRN Reason: Uterine Atony Naloxone HCl (Naloxone 0.4 Mg/Ml Syringe) 0.02 mg IV Q1M PRN PRN Reason: RR <10 and pt unresponsive Ondansetron HCl (Ondansetron 4 Mg/2 Ml Vial) 4 mg IV Q4H PRN PRN PRN Reason: Nausea Oxycodone HCl (Oxycodone 5 Mg Tablet) 5 - 10 mg PO Q4H PRN PRN PRN Reason: Pain Score 4-10 Prochlorperazine Edisylate (Prochlorperazine 10 Mg/2 Ml Vial) 10 mg IV Q6H PRN PRN PRN Reason: NAUSEA Senna/Docusate Sodium (Senna/Docusate Sodium 1 Tablet) 0 tablet PO DAILY [facility] Last Admin: 02/25/20 09:04 Dose: 2 tablet Documented by: Simethicone (Simethicone 80 Mg Tablet) 80 mg PO [facility] PRN PRN Reason: Indigestion/stomach pain Sodium Chloride (0.9% Saline Lock 10 Ml Syringe) 5 - 15 ml IV UD PRN PRN Reason: SALINE FLUSH Last Admin: 02/25/20 21:27 Dose: 10 ml Documented by: Medical Necessity - Tobacco Use Smoking Status: Never smoker Assessment/Plan POD#2 s/p section. Feeling well. Pain controlled. Acute blood loss anemia secondary to surgery, no iron needed. Home today.
[2020-02-26 08:46] VITALS: BP 116/74; PULSE 85; RESP 16; TEMP 36.8; O2SAT 95
[2020-02-26] MEDS: Enoxaparin 40 MG/0.4 ML Syringe SC (10:03)
[2020-02-26] MEDS: Senna/Docusate Sodium 1 Tablet PO (10:03)
--- NOTE | 2020-02-26 11:30 | CASEMGMT ---
Social Work Brief Assessment Labor and Delivery Unit Patient Address: [address] [place] [address] [address], [place] [address] Phone number: [phone] (cell phone) Date of Referral/Notification: 02/26/2020 Referred By: Dr. Camacho Date of Intervention: 02/26/2020 Time of Intervention: 1130 Reason for Referral: Maternal history of depression and anxiety Informant: Medical record and mother of baby (MOB) Chely Norman; father of baby (FOB) Pantera Norman also present History: MOB is a 34-year-old female from the [facility], to the FOB. MOB and FOB have 5 children now after the of baby. Minor children include Alexander (born 10/16/2006), twins child and Navneet (born 12/22/2008), Sachin (born 02/05/2014), and baby girl Dina Norman (born 02/24/2020). MARIFER is 4, para 4 now 5 after delivery of Dina. At delivery baby weighed 5 pounds 6 ounces, delivering at 36.3 weeks gestation. Apgars were 5, 4, 9 at 1, 5, 10 minutes of life respectively. There is a maternal history of depression and anxiety, including depression after each of the children. MOB reports that she started medication prior to Sachin delivering, and this seemed to help in the . With Sachin. MOB reports she just recently started back on Prozac in the last couple of weeks to also attempt prevention of depression after this delivery. No reports or indication of any type of substance use or abuse. MARIFER does occasionally have sips of wine but not during . Educational level is the eighth grade, which is the norm for the [facility]. FOB works outside of the home at [employer]. FOB reports he can have 1 week off of work to help with the transition home. Assessment: Met with the MOB and FOB in room, introducing to self and social work role. MOB receptive to social work visit. Reports mood zambrano to be feeling good and as though the medication is helping. MOB reports that medication helped a lot the last time and thinks it will be much the same. MOB reports that should the medication not be working to have support systems whom she can talk to, as well as knows she can talk to the doctor about adjusting medication dosage. MOB reports that she will have the father of baby home for a week to help. In addition MOB reports her mother and sisters are close by and also can be helpers as needed. Home situation is reported to be safe and adequate MOB lives in the home with the FOB and their older children. MOB and FOB report to have needed baby supplies to care for the including a safe sleep space and a car seat. Transportation is via horse and buggy or hired hazmat cdl a driver. Hired hazmat cdl a driver will be arranged at time of discharge. MOB denies any needs or concerns with home-going, and expressed appreciation for high school social studies teacher stopping by. Divided the MOB with a resource packet on mood and anxiety disorders which does include options for additional support if needed. No voiced concerns from the nursing staff regarding parent-child interactions or bonding. MOV with good eye contact, appropriate mood and affect to content discussed. MOV reports to have a connection with the baby as well. Plan: MOB and infant will discharge home when medically ready. Information provided on mood and anxiety disorders. No further needs requested or indicated. -RICCARDO Evans MSW *Information documented in this assessment generated with [employer]*
[2020-02-26 13:25] VITALS: BP 134/78; PULSE 90; RESP 18; TEMP 36.8; O2SAT 98
== END 2020-02-26 13:40 | disposition home or self-care (01) | DRG 785 ==
LOC: WPOUT 19:20 → WP 02-25 14:27
PROVIDERS: Admitting Provider Obstetrics & Gynecology; PCP Family Medicine; Visit Provider Obstetrics & Gynecology
DX: O76 Abnormality in fetal heart rate and rhythm complicating labor and delivery (principal); O34.212 Maternal care for vertical scar from previous cesarean delivery; N85.8 Other specified noninflammatory disorders of uterus; Z3A.36 36 weeks gestation of pregnancy; Z37.0 Single live birth; Z30.2 Encounter for sterilization
CPT/HCPCS: 59025; 59050; 85025; 85027; 86850; 86900; 86901; 87426; 88302; 99218; 99251; J7120; A4216; G0378; G0463

== ENCOUNTER → 2021-06-20 | Outpatient (CLI) | payer OTHER, SELFPAY ==
[2021-06-20 17:55] LABS: Thyroid Stim Hormone (TSH) 1.54 uIU/mL (0.358-3.74)
[2021-06-26 16:41] LABS: HPV Reflexed? NOT INDICATED
== END | disposition home or self-care (01) ==
PROVIDERS: PCP Family Medicine; Visit Provider Obstetrics & Gynecology
DX: Z13.29 Encounter for screening for other suspected endocrine disorder (principal)
CPT/HCPCS: 36415; 84443; 88175; G0145